=== PATIENT | female | born 1990 | race Caucasian/White ===

== ENCOUNTER → 2019-12-13 | Outpatient (CLI) | payer BC, OTHER ==
--- NOTE | 2019-12-13 12:21 | REP ---
Clinical: Cough . Comparison: None . Technique: PA and lateral. Findings: The mediastinum and cardiac silhouette are normal. The lung florez are clear and without acute consolidation, effusion, or pneumothorax. The skeletal structures are intact and normal. Impression: 1. No acute cardiopulmonary process. Electronically Signed by Jesus Tolbert MD 12/13/2019 12:13 P
== END ==
LOC: M LRY 11:32
PROVIDERS: ATTEND Nurse Practitioner Family
DX: R05 Cough (principal)